=== PATIENT | male | born 1965 | race Caucasian/White ===

== ENCOUNTER 2018-04-04 21:50 | Emergency (ER) | payer BC ==
[2018-04-04 22:19] VITALS: BP 127/92
[2018-04-04] MEDS ORDERED: DIPH/PERTUSS(ACELL)/TETANUS VAC/PF 0.5 ML SYR (>=10YO) IM ONE (22:54)
[2018-04-04] MEDS ORDERED: HYDROCODONE/ACETAMINOPHEN 10-325 MG TABLET PO ONE (22:56)
--- NOTE | 2018-04-04 23:04 | ER Document Report ---
ED Hand/Wrist Injury - General Chief Complaint: Hand Injury Stated Complaint: RIGHT HAND INJURY Time Seen by Provider: 04/04/18 22:44 Notes: Patient is a 53-year-old male presenting to the emergency department with a right hand injury. Patient states his right hand got caught between a truck and a trailer. Patient states he was able to extricate his hand, "I pulled it out hard!" Patient denies hitting his head neck or back, denies LOC. Pt. is not up-to-date on his tetanus. Past medical history: None Medications: None Allergies: none surgeries: Cholecystectomy, hemorrhoids Patient denies history of smoking, illicit drug use, occasional alcohol use TRAVEL OUTSIDE OF THE [place] IN LAST 30 DAYS: No - Related Data Allergies/Adverse Reactions: No Known Allergies Allergy (Unverified 09/01/14 14:25) Past Medical History - General Information source: Patient - Social History Smoking Status: Unknown if Ever Smoked Chew tobacco use (# tins/day): Yes Frequency of alcohol use: Occasional Drug Abuse: None Lives with: Family Family History: Reviewed & Not Pertinent Patient has suicidal ideation: No Patient has homicidal ideation: No Renal/ Medical History: Denies: Hx Peritoneal Dialysis GI Medical History: Reports: Hx Gastroesophageal Reflux Disease Past Surgical History: Reports: Hx Orthopedic Surgery Review of Systems - Review of Systems Constitutional: No symptoms reported EENT: No symptoms reported Cardiovascular: No symptoms reported Respiratory: No symptoms reported Gastrointestinal: No symptoms reported Genitourinary: No symptoms reported Male Genitourinary: No symptoms reported Musculoskeletal: See HPI Skin: See HPI Hematologic/Lymphatic: No symptoms reported Neurological/Psychological: See HPI Physical Exam - Vital signs Vitals: Temp Pulse Resp BP Pulse Ox 99.0 F 76 16 127/92 H 96 04/04/18 22:15 04/04/18 22:15 04/04/18 22:15 04/04/18 22:15 04/04/18 22:15 - Notes Notes: GENERAL: Alert, interacts well. No acute distress. HEAD: Normocephalic, atraumatic. EYES: Pupils equal, round, and reactive to light. Extraocular movements intact. ENT: Oral mucosa moist, tongue midline. NECK: Full range of motion. Supple. Trachea midline. LUNGS: Clear to auscultation bilaterally, no wheezes, rales, or rhonchi. No respiratory distress. HEART: Regular rate and rhythm. No murmur ABDOMEN: Soft, non-tender. Non-distended. Bowel sounds present in all 4 quadrants. EXTREMITIES: Moves all 4 extremities spontaneously. No edema, normal radial and dorsalis pedis pulses bilaterally. No cyanosis. BACK: no cervical, thoracic, lumbar midline tenderness. No saddle anesthesia, normal distal neurovascular exam. NEUROLOGICAL: Alert and oriented x3. Normal speech. . PSYCH: Normal affect, normal mood. SKIN: Warm, dry, swelling, scant bruising noted posterior right hand. FROM all fingers, +motor and sensation distal fingers BL hands. 2cm lac noted horizontal anterior aspect of hand near MCP yet on the palm between 3rd and 5th fingers. Course - Re-evaluation Re-evalutation: Discussed Pt. presentation and and XR results with Dr. Nilo Ruvalcaba, orthopedics d/t open fracture. He stated start pt. on Augmentin and have him follow up in the office. Discussed this with Pt. appropriate phone numbers will be given. Return precautions given. - Vital Signs Vital signs: Temp Pulse Resp BP Pulse Ox 99.0 F 76 16 127/92 H 96 04/04/18 22:15 04/04/18 22:15 04/04/18 22:15 04/04/18 22:15 04/04/18 22:15 Procedures - Immobilization Right Hand Pre-Proc Neuro Vasc Exam: Normal Immobilizer type: Ulnar Performed by: Provider assisted Post-Proc Neuro Vasc Exam: Normal Alignment checked and good: Yes - Laceration/Wound Repair right hand Wound length (cm): 2 Wound's Depth, Shape: Superficial, Irregular Laceration pre-procedure: Sterile PPE donned, Sterile drapes applied, Shur- Clens applied Anesthetic type: 1% Lidocaine w/epi Volume Anesthetic (mLs): 5 Wound explored: Clean, No foreign body removed Wound Debrided: Minimal Wound Repaired With: Sutures Suture Size/Type: 4:0, Ethilon Number of Sutures: 4 Post-procedure wound care: Sterile dressing applied, Splint applied - ulnar gutter Post-procedure NV exam normal: Yes Complications: No Discharge - Discharge Clinical Impression: Phalanx, hand fracture, open Qualifiers: Encounter type: initial encounter Qualified Code(s): S62.609B - Fracture of unspecified phalanx of unspecified finger, initial encounter for open fracture Condition: Stable Disposition: HOME, SELF-CARE Additional Instructions: As we discussed you have a nondisplaced open fracture of your right ring finger. I talked to the orthopedic doctor who recommends he be placed on antibiotics and have your right hand splinted. You should follow-up with Dr. Ruvalcaba, his contact information will be added to your d/c paperwork. The orthopedic doctor will be the one to take you out of the splint and remove the stitches. Please take antibiotics and pain medication as prescribed. Please return to the emergency room should he lose feeling in any of your fingers or the pain is uncontrolled. Prescriptions: Amox Tr/Potassium Clavulanate [Augmentin 875-125 Tablet] 1 tab PO BID 10 Days tablet Oxycodone HCl [Oxycodone HCl 10 MG Tablet] 1 - 2 tab PO Q6H PRN #15 tablet PRN Reason: PAIN Referrals: FER SANTIAGO MD [NO LOCAL MD] - Follow up as needed NILO RUVALCABA DO [ACTIVE STAFF] - Follow up as needed
[2018-04-04] MEDS ORDERED: LIDOCAINE 1% INJ-PF (10 MG/ML) 30 ML SDV INJ ONE (23:07)
--- NOTE | 2018-04-05 00:01 | RADIOLOGY REPORT (SQ) ---
EXAM DESCRIPTION: XR HAND 3 OR MORE VIEWS COMPLETED DATE/TME: 04/04/2018 22:52 CLINICAL HISTORY: 53 years, Male, crush injury COMPARISON: None. FINDINGS: 3 views of the right hand. Nondisplaced fracture involving the shaft of the fourth proximal phalanx. No definite intra-articular extension. No radiopaque foreign bodies. Normal osseous mineralization. IMPRESSION: 1. Nondisplaced fracture involving the shaft of the right fourth proximal phalanx 2010 [employer]- All Rights Reserved
[2018-04-05] MEDS ORDERED: OXYCODONE-ACETAMINOPHEN 5-325 MG TABLET PO ONE (01:33)
== END 2018-04-05 02:13 | disposition home or self-care (01) ==
LOC: ER 21:50
DX: S62.614B Displaced fracture of proximal phalanx of right ring finger, initial encounter for open fracture (principal); W23.0XXA Caught, crushed, jammed, or pinched between moving objects, initial encounter
CPT/HCPCS: 99283; 90471; 73130; 90715; 12001; J3490